=== PATIENT | female | born 1970 | race Hispanic/Latino ===

== ENCOUNTER 2017-07-16 21:43 | Emergency (ER) | payer MEDICARE ==
[2017-07-16] MEDS ORDERED: OCTYL 2-CYANOACRYLATE 1 EACH TP ONE (22:12)
== END 2017-07-16 23:06 | disposition home or self-care (01) ==
LOC: EDH 21:43
DX: S91.012A Laceration without foreign body, left ankle, initial encounter (principal); E11.9 Type 2 diabetes mellitus without complications; E78.5 Hyperlipidemia, unspecified; I10 Essential (primary) hypertension; Z98.890 Other specified postprocedural states; Z72.0 Tobacco use; X58.XXXA Exposure to other specified factors, initial encounter; Y93.89 Activity, other specified; Y92.89 Other specified places as the place of occurrence of the external cause; Y99.8 Other external cause status
CPT/HCPCS: 12002

== ENCOUNTER 2022-11-11 06:02 | Day surgery (SDC) | payer OTHER, MEDICARE ==
[2022-11-09 14:28] LABS: BASOPHILS % (AUTO) 0.6 % (0.0-5.0); EOSINOPHILS % (AUTO) 1.1 % (0.0-8.0); HEMATOCRIT 41.2 % (36-48); MEAN CORPUSCULAR HEMOGLOBIN 28.5 pg (27.0-33.0); MEAN CORPUSCULAR HGB CONC 33.5 g/dL (32.0-36.0); MEAN CORPUSCULAR VOLUME 85.1 fL (79-99); MONOCYTES % (AUTO) 6.3 % (3.0-13.0); NEUTROPHILS % (AUTO) 64.8 % (40.0-77.0); PLATELET COUNT (AUTO) 368 K/uL (130-400); RED BLOOD CELL COUNT(AUTO) 4.84 MIL/uL (4.00-5.50); RED CELL DISTRIBUTION WIDTH 12.9 % (11.0-15.5); WHITE BLOOD COUNT (AUTO) 9.1 K/uL (4.8-10.8)
[2022-11-09 14:30] LABS: APPEARANCE,URINE CLEAR (CLEAR); BILIRUBIN,URINE NEGATIVE (NEGATIVE); COLOR,URINE LIGHT-YELLOW (YELLOW); GLUCOSE, URINE (UA) >=1000 mg/dL (NEGATIVE); KETONES,URINE NEGATIVE (NEGATIVE); LEUKOCYTE ESTERASE ,URINE NEGATIVE Leu/uL (NEGATIVE); NITRATE,URINE NEGATIVE (NEGATIVE); OCCULT BLOOD,URINE NEGATIVE (NEGATIVE); PH,URINE 5.5 (5.0-8.0); PROTEIN,URINE NEGATIVE (NEGATIVE); UROBILINOGEN,URINE 0.2 mg/dL (0.2-1.0)
[2022-11-09 14:37] LABS: CREATININE 0.7 mg/dL (0.5-1.5); POTASSIUM 3.7 mmol/L (3.5-5.1)
[2022-11-09 14:38] LABS: MUCUS,URINE RARE LPF (None Seen); RBC,URINE 0-1 /HPF (0-1); SQUAMOUS EPITHELIAL CELL,UR RARE /HPF (0-2); WBC,URINE 0-1 /HPF (0-1)
[2022-11-09 14:41] LABS: INR 0.97 (0.85-1.15); PROTHROMBIN TIME 11.3 SEC (9.6-11.6)
[2022-11-09 15:00] LABS: B-TYPE NATRIURETIC PEPTIDE 22 pg/mL (0-100)
[2022-11-09 15:10] VITALS: BP 147/79
[2022-11-11] VITALS (9 sets, daily range): BP systolic 110–156; BP diastolic 53–77
[~2022-11-11] VITALS: Ht 162.6 cm; Wt 76.3 kg
[~2022-11-11 06:02] MED LIST: AMLO-258 PO; ASPI-1197 PO; ATOR40TA71 PO; BACL20TA PO; CARV6.25 PO; GEMF600T89 PO; HYDR-3421 PO; HYDR-4068 PO; ISOS10TA2 PO; LOSA25TA41 PO; METF-446 PO; NITR0.4T50 SL; PIOG30TA70 PO; PREG25CA18 PO; RANO500T6 PO; SERT-440 PO; ZOLP-245 PO
[2022-11-11] MEDS ORDERED: 0.9%NACL 1000ML 1,000 ML IV ONE (06:31)
[2022-11-11] MEDS ORDERED: LIDOCAINE HCL 400MG/20ML VIAL ONE (07:21)
[2022-11-11] MEDS ORDERED: FENTANYL CITRATE PF 50 MCG/1 ML 2ML VIAL ONE ×2 (07:21→08:51)
[2022-11-11] MEDS ORDERED: VERAPAMIL HCL 2.5 MG/ML VIAL ONE (07:22)
[2022-11-11] MEDS ORDERED: MIDAZOLAM HCL 1 MG/ML 2ML VIAL ONE ×2 (07:22→08:10)
[2022-11-11] MEDS ORDERED: NITROGLYCERIN 50MG VIAL ONE (07:22)
[2022-11-11] MEDS ORDERED: HEPARIN 10,000 UNIT/10ML (1,000 UNIT/ML) VIAL ONE (07:22)
[2022-11-11] MEDS ORDERED: IOHEXOL 350 MG/ML 100ML INFUS..BTL IV ONE (07:23)
[2022-11-11] MEDS ORDERED: IOHEXOL-350 50ML VIAL IV ONE (08:10)
[2022-11-11] MEDS ORDERED: GLUCAGON 1MG KIT 1 MG ML IM PRN (09:00)
[2022-11-11] MEDS ORDERED: DEXTROSE 50%-WATER 50 ML DISP.SYRIN IV PRN (09:00)
[2022-11-11] MEDS ORDERED: 0.9%NACL 1000ML 1,000 ML IV SCH (09:00)
[2022-11-11] MEDS ORDERED: INSULIN HUMULIN R 100 UNIT/ML 3ML SQ SCH (11:30)
== END 2022-11-11 14:15 | disposition home or self-care (01) ==
LOC: DAH 06:02
PROVIDERS: ATTEND Internal Medicine Interventional Cardiology
DX: R07.89 Other chest pain (principal); I25.10 Atherosclerotic heart disease of native coronary artery without angina pectoris; E11.43 Type 2 diabetes mellitus with diabetic autonomic (poly)neuropathy; E11.52 Type 2 diabetes mellitus with diabetic peripheral angiopathy with gangrene; E78.2 Mixed hyperlipidemia; I10 Essential (primary) hypertension; Z98.890 Other specified postprocedural states; Z79.899 Other long term (current) drug therapy; Z79.82 Long term (current) use of aspirin
CPT/HCPCS: 80048; 83880; 85025; 85610; 85730; 81001; 36415; 71045; 93005; 93458; 82948 ×2; 96360; 96361; C1769 ×4; C1887 ×3; C1894 ×2; A4649; C1874; J3010 ×2; J3490 ×3; J7030; J1644 ×2; J2250 ×2; Q9967 ×2; A4215; A4222; A4221; A4663; A4216; A4606; Q9965 ×2; A4223 ×3; 99156; 99157

== ENCOUNTER → 2023-06-16 | Outpatient (CLI) | payer OTHER, MEDICARE ==
[~2023-06-16] MED LIST changes: -AMLO-258 PO; -ATOR40TA71 PO; +BUDE10.2 IH; +BUPR100T13 PO; -CARV6.25 PO; +FURO40TA7 PO; -GEMF600T89 PO; -HYDR-4068 PO; +INSU100I35 SQ; -ISOS10TA2 PO; -LOSA25TA41 PO; +METO50 PO; -NITR0.4T50 SL; -PREG25CA18 PO; +PREG25CA19 PO; -RANO500T6 PO; +ROSU20TA73 PO; +SPIR25TA6 PO; -ZOLP-245 PO; +albuterol IH
== END | disposition home or self-care (01) ==
LOC: RAH 12:29
PROVIDERS: ATTEND Thoracic Surgery (Cardiothoracic Vascular Surgery)
DX: K76.0 Fatty (change of) liver, not elsewhere classified (principal); I25.10 Atherosclerotic heart disease of native coronary artery without angina pectoris; M47.815 Spondylosis without myelopathy or radiculopathy, thoracolumbar region; Z95.1 Presence of aortocoronary bypass graft
CPT/HCPCS: 71250

== ENCOUNTER 2024-12-24 11:41 | Emergency (ER) | payer OTHER, MEDICAID ==
[~2024-12-24] VITALS: Ht 165.1 cm; Wt 71.7 kg
[~2024-12-24 11:41] MED LIST changes: -ROSU20TA73 PO; +ROSU20TA98 PO
--- NOTE | 2024-12-24 11:54 | EKG ---
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
[2024-12-24 12:19] LABS: IMMATURE GRANULOCYTE ABSOLUTE 0.02 K/uL (0-1); NUCLEATED RED BLOOD CELLS 0.0 % (0.0-0.19); PLATELET COUNT (AUTO) 317 K/uL (130-400); RED BLOOD CELL COUNT(AUTO) 4.72 MIL/uL (4.00-5.50); RED CELL DISTRIBUTION WIDTH 12.8 % (11.0-15.5); WHITE BLOOD COUNT (AUTO) 9.2 K/uL (4.8-10.8)
[2024-12-24 12:29] LABS: APPEARANCE,URINE CLOUDY (CLEAR); GLUCOSE, URINE (UA) 150 mg/dL (NEGATIVE); LEUKOCYTE ESTERASE ,URINE 250 Leu/uL (NEGATIVE); NITRATE,URINE NEGATIVE (NEGATIVE); OCCULT BLOOD,URINE NEGATIVE (NEGATIVE)
[2024-12-24 12:30] LABS: CREATININE 0.6 mg/dL (0.5-1.0); GLOMERULAR FILTR. RATE CALC 106.0 mL/min (>90); GLUCOSE,RANDOM 197.0 mg/dL (70-105); SODIUM SERUM 139.0 mmol/L (136-145); UREA NITROGEN, BLOOD 9.0 mg/dL (7-18)
[2024-12-24 12:31] LABS: ADD UA MICROSCOPIC YES
[2024-12-24 12:33] LABS: SQUAMOUS EPITHELIAL CELL,UR RARE /HPF (0-2)
--- NOTE | 2024-12-24 12:53 | HMCIMG ---
EXAM: CR Chest, 1 View. CLINICAL HISTORY: CP COMPARISON: Radiograph dated January 06, 2023 FINDINGS: LUNGS: The lungs show no infiltrate or other acute finding. PLEURAL SPACES: No evidence of pleural effusion or pneumothorax. MEDIASTINUM: Prior sternotomy. Heart size is stable. Pulmonary vessels and interstitial markings are within normal limits. BONES: No acute osseous abnormality. IMPRESSION: No acute cardiopulmonary pathology is evident. /[place]
[2024-12-24] MEDS: MAGNESIUM OXIDE 400 MG TABLET PO ONE (12:56)
--- NOTE | 2024-12-24 13:00 | ERN ---
General Chief Complaint: Chest Pain Stated Complaint: CP Time Seen by MD: 11:44 Source: patient History of Present Illness Initial Comments PATIENT IS A 56-YEAR-OLD FEMALE COMING IN COMPLAINING IN HIS HAVING CHEST PAIN. HAS BEEN ONGOING FOR SOME TIME. SHE STATES HE WAS CONCERNED BECAUSE OF THE DISCOMFORT CAME IN FOR FURTHER EVALUATION. Allergies: Coded Allergies: No Known Allergies (Unverified Allergy, Unknown, 11/09/22) Home Meds Active Scripts Spironolactone (Spironolactone) 25 Mg Tablet, 25 MG PO DAILY for 30 Days, #30 TAB 0 Refills Prov:MARGARET MAS MD 01/07/23 Metoprolol Tartrate (Lopressor 50Mg Tab) 50 Mg Tab, 50 MG PO BID for 30 Days, #60 TAB 0 Refills Prov:MARGARET MAS MD 01/07/23 Furosemide (Lasix 40Mg Tab) 40 Mg Tablet, 20 MG PO BID@09,17 for 30 Days, #60 TAB 0 Refills Prov:MARGARET MAS MD 01/07/23 Reported Medications Bupropion HCl (Bupropion HCl) 100 Mg Tablet, 100 MG PO DAILY, TAB 12/30/22 Sertraline HCl (Sertraline HCl) 100 Mg Tablet, 100 MG PO HS, TAB 12/30/22 Rosuvastatin Calcium (Rosuvastatin Calcium) 20 Mg Tablet, 20 MG PO DAILY, TAB 12/30/22 Hydroxyzine HCl (Hydroxyzine HCl) 25 Mg Tablet, 25 MG PO Q8H, TAB 12/30/22 [albuterol] No Conflict Check, 2-4 PUFF IH Q6HPRN PRN for SHORTNESS OF BREATH/WHEEZING 12/30/22 Budesonide/Formoterol Fumarate (Symbicort 160-4.5 Mcg Inhaler) 10.2 Gm Hfa.aer.ad, 2 PUFF IH BID 12/30/22 Insulin NPH Hum/Reg Insulin Hm (Novolin 70-30 Flexpen) 100 Unit/1 Ml Insuln.pen, SQ AD, SYRINGE 12/30/22 Aspirin (Aspirin) 81 Mg Tab.chew, 1 TAB PO DAILY 11/10/22 Metformin HCl (Metformin HCl) 1,000 Mg Tablet, 1 TAB PO BID 11/10/22 Pregabalin (Pregabalin) 25 Mg Capsule, 1 CAP PO BID 11/10/22 Pioglitazone HCl (Pioglitazone HCl) 30 Mg Tablet, 1 TAB PO DAILY 11/10/22 Baclofen (Baclofen) 20 Mg Tablet, 1 TAB PO BID 11/10/22 Past Medical History Past Medical History: Diabetes-Type II, High Cholesterol, Heart Disease, Hypertension, [place] Medical History Other: CHRONIC BACK PAIN Past Surgical History: CABG Surgical History Other: KNEE, BACK ROS Dictation CONSTITUTIONAL: NO CHILLS, NO FEVER, NO WEAKNESS, NO DIAPHORESIS, NO MALAISE. HEAD/FACE: NO SIGNS OF TRAUMA. EENT: NO EYE PAIN, NO BLURRED VISION, NO TEARING, NO DOUBLE VISION, NO EAR P AIN, NO EAR DISCHARGE, NO NOSE PAIN, NO NASAL CONGESTION, NO THROAT PAIN, NO THROAT SWELLING, NO MOUTH PAIN. RESPIRATORY: NO COUGH, NO ORTHOPNEA, NO SOB, NO STRIDOR, NO WHEEZING. CARDIOVASCULAR: CHEST PAIN, NO EDEMA, NO PALPITATIONS, NO SYNCOPE. GASTROINTESTINAL/ABDOMINAL: NO ABDOMINAL PAIN, NO CONSTIPATION, NO DIARRHEA, NO NAUSEA, NO VOMITING. GENITOURINARY: NO ABNORMAL DISCHARGE, NO DYSURIA, NO FREQUENT URINATION, NO HEMATURIA. NO COMPLAINTS OF PAIN IN THE GENITALS. MUSCULOSKELETAL: NO BACK PAIN, NO GOUT, NO JOINT PAIN, NO JOINT SWELLING, NO MUSCLE PAIN, NO MUSCLE STIFFNESS, NO NECK PAIN. INTEGUMENTARY: NO CHANGE IN COLOR, NO CHANGE IN HAIR/NAILS, NO DRYNESS, NO LESION, NO LUMPS, NO RASH. NEUROLOGICAL/PSYCH: NO ANXIETY, NOT DEPRESSED, NO EMOTIONAL PROBLEM, NO HEADACHE, NO NUMBNESS, NO PRE-EXISTING DEFICIT, NO HISTORY OF SEIZURES, NO TREMORS, NO WEAKNESS. HEMATOLOGIC/LYMPHATIC: NOT ANEMIC, NO HISTORY OF BLOOD CLOTS, NO APPARENT BLEEDING, NO BRUISING, GLANDS NOT SWOLLEN. ALL SYSTEMS NEGATIVE, EXCEPT NOTED. Physical Exam Physical Exam Dictation VITAL SIGNS: REVIEWED. GENERAL APPEARANCE: ALERT, ORIENTED X3, NO ACUTE DISTRESS, OBESE. HEAD AND FACE: NON-TRAUMATIC. EYES: PERRL, PINK CONJUNCTIVAS, EYELID NO TRAUMA, ANTERIOR CHAMBER CLEAR. EARS: PINNAS INTACT AND NO SIGNS OF TRAUMA OR ERYTHEMA. EAR CANALS CLEAR AND NO DISCHARGE. TMS NO ERYTHEMA. NOSE: NO DISCHARGE, NO BLEEDING. OROPHARYNX: MOUTH NORMAL, TEETH NO CARIES, TONGUE PINK. PHARYNX CLEAR, NO ERYTHEMA. TONSILS NO EXUDATES, NO ABSCESSES NOTED. MUCOUS MEMBRANE MOIST. NECK: SUPPLE, NON-TENDER, NO THYROMEGALY, NO MASSES, NO JVD, NO BRUITS. BREAST: DEFERRED. CHEST: NO TENDERNESS, NO CREPITUS, NO PARADOXICAL MOVEMENT, NO RETRACTIONS. LUNGS: CLEAR, WELL-VENTILATED, SYMMETRIC, NO RALES, NO WHEEZING, NO RHONCHI, NO STRIDOR, GOOD BREATH SOUNDS BILATERALLY. HEART: REGULAR RATE, REGULAR RHYTHM, NO MURMUR, NO GALLOPS. VASCULAR: NO PERIPHERAL EDEMA. ABDOMEN: SOFT, POSITIVE BOWEL SOUNDS, NONDISTENDED, NO GUARDING, NONTENDER, NO REBOUND, NO MASSES NO HEPATOMEGALY, NO SPLENOMEGALY, NO WATT'S SIGN, NO HERNIAS. RECTAL: DEFERRED. GENITAL: DEFERRED. NEUROLOGICAL: NORMAL SPEECH, GROSS MOTOR FUNCTION INTACT, GROSS SENSORY FUNCTION INTACT. MUSCULOSKELETAL: NECK NONTENDER, FULL RANGE OF MOTION, BACK NONTENDER, FULL RANGE OF MOTION. EXTREMITIES: NONTENDER, FULL RANGE OF MOTION. SKIN: COLOR PINK, DRY, NO TURGOR, NO RASH, NO LACERATIONS, NO ABRASIONS, NO CONTUSIONS. LYMPHATICS: DEFERRED. Results Laboratory and Microbiology Lab and Micro Result Laboratory Tests Test 12/24/24 12:00 12/24/24 13:28 White Blood Count 9.2 K/uL (4.8-10.8) Red Blood Count 4.72 MIL/uL (4.00-5.50) Hemoglobin 14.1 g/dL (12.0-16.0) Hematocrit 40.5 % (36-48) Mean Corpuscular Volume 85.8 fL (79-99) Mean Corpuscular Hemoglobin 29.9 pg (27.0-33.0) Mean Corpuscular Hemoglobin Concent 34.8 g/dL (32.0-36.0) Red Cell Distribution Width 12.8 % (11.0-15.5) Platelet Count 317 K/uL (130-400) Mean Platelet Volume 10.1 fL (7.5-10.5) Immature Granulocyte % (Auto) 0.2 % (0-1) Neutrophils (%) (Auto) 66.2 % (40.0-77.0) Lymphocytes (%) (Auto) 26.2 % (21.0-51.0) Monocytes (%) (Auto) 5.8 % (3.0-13.0) Eosinophils (%) (Auto) 1.1 % (0.0-8.0) Basophils (%) (Auto) 0.5 % (0.0-5.0) Neutrophils # (Auto) 6.1 K/uL (1.8-7.7) Lymphocytes # (Auto) 2.4 K/uL (1.0-4.8) Monocytes # (Auto) 0.5 K/uL (0.1-1.0) Eosinophils # (Auto) 0.10 K/uL (0.00-0.70) Basophils # (Auto) 0.05 K/uL (0.00-0.20) Absolute Immature Granulocyte (auto 0.02 K/uL (0-1) Nucleated Red Blood Cells 0.0 % (0.0-0.19) Urine Color YELLOW (YELLOW) Urine Appearance CLOUDY (CLEAR) H Urine pH 5.5 (5.0-8.0) Urine Specific [place] 1.022 (1.001-1.031) Urine Protein 10 mg/dL (NEGATIVE) H Urine Glucose (UA) 150 mg/dL (NEGATIVE) H Urine Ketones NEGATIVE mg/dL (NEGATIVE) Urine Occult Blood NEGATIVE (NEGATIVE) Urine Nitrate NEGATIVE (NEGATIVE) Urine Bilirubin NEGATIVE mg/dL (NEGATIVE) Urine Urobilinogen 0.2 mg/dL (0.2-1.0) Urine Leukocyte Esterase 250 [place]/uL (NEGATIVE) H Urine RBC 2-5 /HPF (0-1) H Urine WBC 26-50 /HPF (0-1) H Urine Squamous Epithelial Cells RARE /HPF (0-2) Urine Bacteria MOD /HPF (None Seen) Urine Hyaline Casts 2-5 /LPF (0-1 /LPF) H Sodium Level 139 mmol/L (136-145) Potassium Level 3.5 mmol/L (3.5-5.1) Chloride Level 104 mmol/L (101-111) Carbon Dioxide Level 30 mmol/L (21-32) Blood Urea Nitrogen 9 mg/dL (7-18) Creatinine 0.6 mg/dL (0.5-1.0) Glomerular Filtration Rate Calc 106 mL/min (>90) Random Glucose 197 mg/dL (70-105) H Total Calcium 8.9 mg/dL (8.5-10.1) Magnesium Level 1.50 mg/dL (1.80-2.40) L Troponin I High Sensitivity < 4 ng/L (4-50) L 5 ng/L (4-50) Labs Reviewed?: Yes EKG/XRAY/US/CT/MRI EKG Comment 12/24/2024 TIME 11:44 A.M. VENTRICULAR RATE [address] WAVE ELEVATION OR DEPRESSION DE 131 MDM MDM: DIFFERENTIAL DIAGNOSIS: UTI, CHEST WALL PAIN, RATIONALE: TESTS CONSIDERED AND ORDERED SECONDARY TO SHARED DECISION MAKING INCLUDE: PREVIOUS OUTSIDE RECORDS REVIEWED: OLD ER VISITS. RISK OF COMPLICATION AND/OR MORBIDITY OR MORTALITY OF PATIENT MANAGEMENT: NONE MEDICATIONS-PER MEDICATION RECONCILIATION NEED FOR HOSPITALIZATION: PATIENT DOES NOT MEET CRITERIA FOR HOSPITALIZATION. NEED FOR EMERGENCY MAJOR/MINOR SURGERY: NO PATIENT IS A 54-YEAR-OLD FEMALE COMING IN COMPLAINING OF LEFT-SIDED CHEST PAIN. ON PHYSICAL EXAM THERE IS TENDERNESS TO PALPATION OF THE LEFT-SIDED CHEST WALL INCLUDING PECTORALIS MAJOR MUSCLE. LABORATORY WORKUP POSITIVE FOR UTI. PATIENT STATES THAT SHE ALWAYS HAS A URINARY TRACT INFECTION. PATIENT WAS TREATED WITH IV ANTIBIOTICS HE WILL BE DISCHARGED WITH ORAL ANTIBIOTICS I WILL BE REFERRING HER TO UROLOGIST FOR LONG-TERM MANAGEMENT. ED Course Orders Procedure Category Date Status Time 12 Lead Ekg Tracing- EKG 12/24/24 Complete Technical 11:51 Cbc With Differential LAB 12/24/24 Complete 11:52 Chest 1vw RAD 12/24/24 Resulted 11:52 Magnesium LAB 12/24/24 Complete 11:52 Troponin I High LAB 12/24/24 Complete Sensitivity 11:52 Urinalysis Profile LAB 12/24/24 Complete 11:52 Basic Metabolic Panel LAB 12/24/24 Complete 11:52 Culture Urine GIANCARLO 12/24/24 In Process 12:32 Ceftriaxone 1g Vial PHA 12/24/24 Complete (Rocephine 1g Inj) 13:00 Magnesium Oxide PHA 12/24/24 Complete (Mag-Ox) 13:00 Troponin I High LAB 12/24/24 Complete Sensitivity 13:00 Current Medications Medications (Trade) Dose Ordered Sig/Stephanie Route PRN Reason Start Time Stop Time Status Last Admin Dose Admin Ceftriaxone Sodium (ROCEphine 1G INJ) 1 gm ONCE ONCE IVPB 12/24/24 13:00 12/24/24 13:01 DC 12/24/24 12:56 Magnesium Oxide (Mag-Ox) 400 mg ONCE ONCE PO 12/24/24 13:00 12/24/24 13:01 DC 12/24/24 12:56 Vital Signs Date Time Temp Pulse Resp B/P (MAP) Pulse Ox O2 Delivery O2 Flow Rate FiO2 12/24/24 12:15 98.2 90 16 146/79 97 Room Air* 0 21 12/24/24 12:12 98.2 59 16 117/52 97 Room Air* 0 21 12/24/24 11:43 97.9 95 18 171/106 98 Room Air 0 DX & DISP Disposition: Discharge Departure Impression: Primary Impression: UTI (urinary tract infection) Additional Impression: Chest wall pain Condition: Stable Scripts Cephalexin Monohydrate (Keflex) 500 Mg Cap 1 CAP PO BID for 10 Days, #20 CAP 0 Refills Prov: JAVY LIMA MD 12/24/24 Additional Instructions: FOLLOW-UP WITH PRIMARY CARE PROVIDER IN 1 TO 2 DAYS. TAKE MEDICATIONS DIRECTED HERE IN THE EMERGENCY ROOM. OKAY TO CONTINUE HOME MEDICATIONS UNLESS OTHERWISE DISCUSSED DURING YOUR VISIT IN THE EMERGENCY ROOM TODAY. RETURN TO YOUR NEAREST EMERGENCY ROOM IF SYMPTOMS WORSEN OR IF THERE IS NO IMPROVEMENT. CALL 911 IF YOU NEED IMMEDIATE ASSISTANCE. TAKE TYLENOL [id number] NEEDED AND IF NO CONTRAINDICATIONS ARE PRESENT. INCREASE ORAL HYDRATION. A WOUND CULTURE OR URINE CULTURE WAS ORDERED HERE IN THE EMERGENCY ROOM DEPARTMENT PLEASE FOLLOW-UP WITH PRIMARY CARE PROVIDER AND ADVISE THEM TO GET REPORTS FROM OUR FACILITY. IF YOU HAD ANY JOSE WRAP/SPLINTS THAT WERE APPLIED HERE, PLEASE DO NOT REMOVE THEM UNTIL YOU SEE YOUR PRIMARY CARE OR SPECIALTY. REFERRALS: Referrals: AMAURY BUSTOS (PCP) Time of Disposition: 14:05 JAVY LIMA MD Dec 24, 2024 13:00
[2024-12-24] MEDS ORDERED: CEPH500B PO (14:06)
[2024-12-24 14:09] VITALS: BP 135/80; PULSE 84; RESP 16; TEMP 98.3; O2SAT 97
== END 2024-12-24 14:15 | disposition home or self-care (01) ==
LOC: EDH 11:41
DX: N39.0 Urinary tract infection, site not specified (principal); R07.89 Other chest pain; E11.9 Type 2 diabetes mellitus without complications; E78.00 Pure hypercholesterolemia, unspecified; I10 Essential (primary) hypertension; Z79.51 Long term (current) use of inhaled steroids; Z79.82 Long term (current) use of aspirin; Z79.84 Long term (current) use of oral hypoglycemic drugs; Z79.899 Other long term (current) drug therapy; Z95.1 Presence of aortocoronary bypass graft
CPT/HCPCS: 99285; 96374; 71045; 83735; 84484 ×2; 80048; 85025; 87086 ×2; 87186; 81001; 36415; 93005; J0696

== ENCOUNTER → 2025-01-31 | Outpatient (CLI) | payer OTHER, MEDICAID ==
[~2025-01-31] MED LIST changes: +CEPH500B PO
== END | disposition home or self-care (01) ==
LOC: RAH 10:58
PROVIDERS: ATTEND Family Medicine
DX: Z12.31 Encounter for screening mammogram for malignant neoplasm of breast (principal)
CPT/HCPCS: 77067

== ENCOUNTER → 2025-02-26 | Outpatient (CLI) | payer OTHER, MEDICAID ==
--- NOTE | 2025-03-01 16:17 | HMCIMG ---
Right BREAST ULTRASOUND: CLINICAL HISTORY: Right breast density Finding: Real-time examination of the [right/left] breast demonstrates homogeneous echotexture throughout the breast without evidence of focal solid or cystic masses. There is a right breast intramammary lymph node measuring 0.5 x 0.4 x 0.4 cm at 10:30- 11:00. There is also a right axillary lymph node measuring 2.9 x 0.8 x 2.87. IMPRESSION: Right breast sonogram has a intramammary lymph node seen 10:30 -11:00. FINAL ASSESSMENT: ACR: BI-RAD- 2. Benign: Also a negative assessment; finding(s) benign abnormalities. Management: Routine mammography screening. Likelihood of Cancer: Essentially 0% likelihood of malignancy.
== END | disposition home or self-care (01) ==
LOC: RAH 11:10
PROVIDERS: ATTEND Family Medicine
DX: R92.341 Mammographic extreme density, right breast (principal); R59.0 Localized enlarged lymph nodes
CPT/HCPCS: 76641